=== PATIENT | male | born 1980 | race Caucasian/White ===

== ENCOUNTER 2020-04-16 12:47 | Emergency (ER) | payer OTHER ==
--- NOTE | 2020-04-16 13:11 | ED ---
General Adult HPI - General Chief complaint: Nausea/Vomiting/Diarrhea Stated complaint: nausea Time Seen by Provider: 04/16/20 12:58 Source: patient, RN notes reviewed Mode of arrival: ambulatory Limitations: no limitations - History of Present Illness Initial comments: 39-year-old male presents to the emergency department for coronavirus testing. Patient had slight nausea this morning at work and his work sent him home to be tested before returning to work. Patient states nausea has completely resolved. He states he feels his normal self. Patient denies fevers or chills. Denies cough. Denies vomiting or diarrhea. Denies any known exposures to coronavirus.Patient has no other complaints at this time including shortness of breath, chest pain, abdominal pain, vomiting, headache, or visual changes. - Related Data Allergies Allergy/AdvReac Type Severity Reaction Status Date / Time shellfish derived [Shellfish] Allergy Rash/Hives Verified 04/16/20 12:54 Review of Systems ROS Statement: Those systems with pertinent positive or pertinent negative responses have been documented in the HPI. ROS Other: All systems not noted in ROS Statement are negative. Past Medical History Past Medical History: No Reported History History of Any Multi-Drug Resistant Organisms: None Reported Past Surgical History: No Surgical Hx Reported Past Psychological History: No Psychological Hx Reported Smoking Status: Current every day smoker Past Alcohol Use History: Rare Past Drug Use History: None Reported General Exam Limitations: no limitations General appearance: alert, in no apparent distress Head exam: Present: atraumatic, normocephalic, normal inspection Eye exam: Present: normal appearance, PERRL, EOMI. Absent: scleral icterus, conjunctival injection, periorbital swelling ENT exam: Present: normal exam, normal oropharynx, mucous membranes moist, TM's normal bilaterally, normal external ear exam Neck exam: Present: normal inspection, full ROM. Absent: tenderness, meningismus, lymphadenopathy Respiratory exam: Present: normal lung sounds bilaterally. Absent: respiratory distress, wheezes, rales, rhonchi, stridor Cardiovascular Exam: Present: regular rate, normal rhythm, normal heart sounds. Absent: systolic murmur, diastolic murmur, rubs, gallop, clicks GI/Abdominal exam: Present: soft, normal bowel sounds. Absent: distended, tenderness, guarding, rebound, rigid Neurological exam: Present: alert Course Vital Signs 04/16/20 12:48 Temperature 98.3 F Pulse Rate 110 H Respiratory 20 Rate Blood Pressure 129/79 O2 Sat by Pulse 97 Oximetry Medical Decision Making - Medical Decision Making Vitals are stable. Patient initially tachycardic likely secondary to anxiety. Lungs are clear bilaterally. Abdomen is nontender. Patient is not having any nausea or vomiting. Patient is here only for chronic virus testing. Patient was tested and I did discuss the results would be available in about 24-48 hours. He will follow up on results. He will return here for any worsening symptoms. Disposition Clinical Impression: Encounter for laboratory test Disposition: HOME SELF-CARE Condition: Good Instructions (If sedation given, give patient instructions): Acute Nausea and Vomiting (ED) Additional Instructions: Please follow up on results in the next 1-2 days. If you have any worsening symptoms return to the emergency department for evaluation. Is patient prescribed a controlled substance at d/c from ED?: No Referrals: Renuka Gaviria MD [REFERRING] - 1-2 days Time of Disposition: 13:11
[2020-04-16 13:22] VITALS: BP 124/82; PULSE 89; RESP 18; TEMP 97.8
== END 2020-04-16 13:33 | disposition home or self-care (01) ==
LOC: EC 12:47
DX: Z03.818 Encounter for observation for suspected exposure to other biological agents ruled out (principal); Z20.828 Contact with and (suspected) exposure to other viral communicable diseases; F17.200 Nicotine dependence, unspecified, uncomplicated; Z91.013 Allergy to seafood
CPT/HCPCS: 99283; U0003

== ENCOUNTER 2020-10-06 16:33 | Inpatient (IN) | payer OTHER ==
--- NOTE | 2020-10-06 17:55 | ED ---
General Adult HPI - General Chief complaint: Psychiatric Symptoms Stated complaint: Mental Health Time Seen by Provider: 10/06/20 17:38 Source: patient, RN notes reviewed, old records reviewed Mode of arrival: ambulatory Limitations: no limitations - History of Present Illness Initial comments: 39-year-old male presenting for suicidal ideation, depression. Patient states he has multiple plans on how to kill himself. He denies suicide attempt. He reports increased depression and states there is nothing worth living 4. He denies physical complaints. He denies alcohol or illicit drugs. - Related Data Home Medications Medication Instructions Recorded Confirmed No Known Home Medications 10/06/20 10/06/20 Allergies Allergy/AdvReac Type Severity Reaction Status Date / Time shellfish derived [Shellfish] Allergy Rash/Hives Verified 10/06/20 19:22 Review of Systems ROS Statement: Those systems with pertinent positive or pertinent negative responses have been documented in the HPI. ROS Other: All systems not noted in ROS Statement are negative. Past Medical History Past Medical History: No Reported History History of Any Multi-Drug Resistant Organisms: None Reported Past Surgical History: No Surgical Hx Reported Past Psychological History: Depression Smoking Status: Current some day smoker Past Alcohol Use History: Rare Past Drug Use History: None Reported General Exam Limitations: no limitations General appearance: alert, in no apparent distress Head exam: Present: atraumatic, normocephalic Eye exam: Present: normal appearance, PERRL ENT exam: Present: normal exam Neck exam: Present: normal inspection. Absent: tenderness, meningismus Respiratory exam: Present: normal lung sounds bilaterally. Absent: respiratory distress, wheezes Cardiovascular Exam: Present: regular rate, normal rhythm GI/Abdominal exam: Present: soft. Absent: distended, tenderness, guarding Extremities exam: Present: normal inspection, normal capillary refill. Absent: pedal edema Back exam: Present: normal inspection Neurological exam: Present: alert, oriented X3, CN II-XII intact. Absent: motor sensory deficit Psychiatric exam: Present: depressed, flat affect, suicidal ideation Skin exam: Present: warm, dry, intact Course Vital Signs 10/06/20 16:50 Temperature 97.9 F Pulse Rate 81 Respiratory 18 Rate Blood Pressure 138/98 O2 Sat by Pulse 97 Oximetry - Reevaluation(s) Reevaluation #1: 10/06/20 17:55 Patient medically cleared for EPS evaluation. Medical Decision Making - Medical Decision Making Patient has been evaluated by EPS and will be admitted to this institution for further psychiatric evaluation and treatment. - Lab Data Lab Results 10/06/20 Range/Units 18:08 Urine Opiates Screen Not Detected (NotDetected) Ur Oxycodone Screen Not Detected (NotDetected) Urine Methadone Screen Not Detected (NotDetected) Ur Propoxyphene Screen Not Detected (NotDetected) Ur Barbiturates Screen Not Detected (NotDetected) U Tricyclic Antidepress Not Detected (NotDetected) Ur Phencyclidine Scrn Not Detected (NotDetected) Ur Amphetamines Screen Not Detected (NotDetected) U Methamphetamines Scrn Not Detected (NotDetected) U Benzodiazepines Scrn Not Detected (NotDetected) Urine Cocaine Screen Not Detected (NotDetected) U Marijuana (THC) Screen Not Detected (NotDetected) Disposition Clinical Impression: Depression, Suicidal ideation Disposition: ADMITTED IP TO THIS [facility] Condition: Stable Is patient prescribed a controlled substance at d/c from ED?: No Referrals: None,Stated [Primary Care Provider] - 1-2 days Decision to Admit Reason: Admit from EC Decision Date: 10/06/20 Decision Time: 19:42
[2020-10-06 18:38] LABS: Amphetamine Screen,Urine Not Detected (NotDetected); Barbiturate Screen,Urine Not Detected (NotDetected); Benzodiazepines Screen,Urine Not Detected (NotDetected); Cocaine Screen,Urine Not Detected (NotDetected); Methadone Screen, Urine Not Detected (NotDetected); Opiate Screen,Urine Not Detected (NotDetected); Oxycodone Screen, Urine Not Detected (NotDetected); Phencyclidine Screen,Urine Not Detected (NotDetected); Tricyclic Antidepressant,Urine Not Detected (NotDetected); Urn Cannabinoid Scrn Not Detected (NotDetected)
[2020-10-06] MEDS ORDERED: ACETAMINOPHEN TAB 325 MG TAB PO PRN (22:22)
[2020-10-06] MEDS ORDERED: LORazepam 1 MG TAB PO PRN (22:22)
[2020-10-06] MEDS ORDERED: MAG HYDROX/AL HYDROX/SIMETH 30 ML CUP PO PRN (22:22)
[2020-10-06] MEDS ORDERED: MAGNESIUM HYDROXIDE 2,400 MG/10 ML CUP PO PRN (22:22)
[2020-10-06] MEDS ORDERED: HALOPERIDOL LACTATE 5 MG/ML 1 ML VIAL IM PRN (22:24)
[2020-10-07] MEDS: NICOTINE 14MG/24HR PATCH TRANSDERM SCH ×2 (00:13→09:34)
[2020-10-07 08:41] LABS: Basophils # (A) 0.1 k/uL (0-0.2); Basophils % (A) 2 %; Eosinophils # (A) 0.4 k/uL (0-0.7); Eosinophils % (A) 6 %; HCT 51.2 % (39.0-53.0); HGB 17.2 gm/dL (13.0-17.5); Lymphocytes # (A) 2.9 k/uL (1.0-4.8); Lymphocytes % (A) 41 %; MCH 33.3 pg (25.0-35.0); MCHC 33.5 g/dL (31.0-37.0); MCV 99.4 fL (80.0-100.0); Mean Platelet Volume 6.5; Monocytes # (A) 0.6 k/uL (0-1.0); Monocytes % (A) 8 %; Neutrophils # (A) 2.8 k/uL (1.3-7.7); Neutrophils % (A) 41 %; Platelet Count 325 k/uL (150-450); RBC 5.15 m/uL (4.30-5.90); RDW 13.5 % (11.5-15.5); WBC 6.9 k/uL (3.8-10.6)
[2020-10-07 08:55] LABS: ALT 20 U/L (4-49); AST 42 U/L (17-59); African American GFR (CKD) >90 (>60 ml/min/1.73 sqM); Alkaline Phosphatase 71 U/L (38-126); Anion Gap 7 mmol/L; Blood Urea Nitrogen 18 mg/dL (9-20); Calcium 10.1 mg/dL (8.4-10.2); Carbon Dioxide 25 mmol/L (22-30); Chloride 104 mmol/L (98-107); Cholesterol 280 mg/dL (<200); Glucose 95 mg/dL (74-99); Non-African American GFR(CKD) >90 (>60 ml/min/1.73 sqM); Potassium 4.7 mmol/L (3.5-5.1); Sodium 136 mmol/L (137-145); Total Bilirubin 0.8 mg/dL (0.2-1.3); Total Protein 8.2 g/dL (6.3-8.2); Triglycerides 129 mg/dL (<150)
[2020-10-07 09:04] LABS: LDL Cholesterol,Calculated 127 mg/dL (0-99)
[2020-10-07 09:08] LABS: HDL Cholesterol 127 mg/dL (40-60)
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
[2020-10-07 13:05] LABS: Appearance,Urine Clear (Clear); Bilirubin,Urine Negative (Negative); Blood,Urine Negative (Negative); Color,Urine Yellow; Glucose,Urine (UA) Negative (Negative); Ketones,Urine Negative (Negative); Leukocyte Esterase,Urine Negative (Negative); Nitrite,Urine Negative (Negative); PH, Urine 5.5 (5.0-8.0); Protein,Urine Negative (Negative); Specific Gravity,Urine 1.025 (1.001-1.035); Urobilinogen,Urine <2.0 mg/dL (<2.0)
[2020-10-07 15:31] LABS: Hemoglobin A1C 5.2 % (4.0-6.0)
[2020-10-07] MEDS ORDERED: QUEtiapine 25 MG TAB PO SCH (21:00)
[2020-10-07] MEDS: LITHIUM CARBONATE 300 MG CAP PO SCH (21:30)
--- NOTE | 2020-10-08 00:25 | P.MDCNMH ---
History of Present Illness H&P Date: 10/07/20 Chief Complaint: Suicidal 39-year-old male with history of depression Patient comes in due to suicidal ideation and depression due to life stressors. Reports losing his work and girlfriend. He is feeling down and having suicidal ideation Patient otherwise denies any medical concerns denies any fevers chills chest pain trouble breathing or coughing denies any upper respiratory infection symptoms denies any muscle aches denies any nausea vomiting abdominal pain diarrhea Patient denies any smoking drugs or heavy alcohol use Labs reviewed Review of Systems Pertinent positives as noted in HPI. All other systems were reviewed and are neg ative Past Medical History Past Medical History: No Reported History History of Any Multi-Drug Resistant Organisms: None Reported Past Surgical History: No Surgical Hx Reported Past Psychological History: Depression Smoking Status: Current some day smoker Past Alcohol Use History: Rare Past Drug Use History: None Reported Medications and Allergies Home Medications Medication Instructions Recorded Confirmed Type No Known Home Medications 10/06/20 10/06/20 History Allergies Allergy/AdvReac Type Severity Reaction Status Date / Time shellfish derived [Shellfish] Allergy Rash/Hives Verified 10/06/20 19:22 Physical Exam Vitals: Vital Signs Temp Pulse Resp BP 10/07/20 17:15 98.0 F 10/07/20 06:36 97.8 F 62 16 119/68 Constitutional: No acute distress, conversant, pleasant Eyes: Anicteric sclerae, moist conjunctiva, Pupils equal round reactive to light ENMT: NC/AT Oropharynx clear, no erythema, or exudates Neck: Supple, FROM, no masses, or JVD No carotid bruits No thyromegaly Lungs: Clear to auscultation Clear to percussion Normal respiratory effort, no accessory muscle use Cardiovascular: Heart regular in rate and rhythm, No murmurs, gallops, or rubs No peripheral edema Abdominal: Soft Nontender, no guarding, rebound or rigidity Abdomen moving with respiration Normoactive bowel sounds No hepatomegaly, No splenomegaly No palpable mass No abdominal wall hernia noted Skin: Normal temperature, tone, texture, turgor No induration No subcutaneous nodules No rash, lesions No ulcers Extremities: No digital cyanosis No clubbing Pedal pulses intact and symmetrical Radial pulses intact and symmetrical No calf tenderness Psychiatric: Alert and oriented to person, place and time Appropriate affect fair judgement Neuro Muscles Strength 5/5 in all 4 extremities Sensation to light touch grossly present throughout Cranial nerves II-XII grossly intact No focal sensory deficits Lymphatics: no palpable cervical or supraclavicular , or inguinal lymph nodes Cranial Nerve Examination - Cranial Nerves Cranial Nerve II- Optic: Intact Cranial Nerve III- Oculomotor: Intact Cranial Nerve IV- Trochlear: Intact Cranial Nerve V- Trigeminal: Intact Cranial Nerve - Abducens: Intact Cranial Nerve VII- Facial: Intact Cranial Nerve VIII- Auditory: Intact Cranial Nerve IX- Glossopharyngeal: Intact Cranial Nerve X- Vagus: Intact Cranial Nerve XI- Accessory: Intact Cranial Nerve XII- Hypoglossal: Intact Results CBC & Chem 7: 10/07/20 08:01 10/07/20 08:01 Labs: Abnormal Lab Results - Last 24 Hours (Table) 10/07/20 Range/Units 08:01 Sodium 136 L (137-145) mmol/L Cholesterol 280 H (<200) mg/dL LDL Cholesterol, Calc 127 H (0-99) mg/dL HDL Cholesterol 127 H (40-60) mg/dL Assessment and Plan Assessment: Suicidal ideation Depression Management per psych labs Reviewed Thank you for allowing us to participate in the care of this patient. We will follow peripherally. Do not hesitate to contact us with questions. Someone can be reached from the [facility] hospitalist group at all hours of the day at [phone].
[2020-10-08] MEDS: NICOTINE 14MG/24HR PATCH TRANSDERM SCH (09:10)
[2020-10-08] MEDS: LITHIUM CARBONATE 300 MG CAP PO SCH ×2 (09:10→21:15)
--- NOTE | 2020-10-08 09:49 | P.PN ---
Progress Note - Text Progress Note Date: 10/08/20 Interval History: Patient was seen in group and was directable and agreeable to speak with the bid writer in the office. Patient is reporting that he is feeling better. He reported that he was able to sleep well last night. Prior to falling asleep though, the patient reports that he was having significant racing thoughts. He is not reporting any suicidal or homicidal ideation, intention, and/or plan today. He is not reporting any auditory or visual hallucinations. He denies any paranoia or delusions. He reports that mood swings have been under control at this time. He has been in adherent with his medications and reports no side effects. Mental Status Exam: General Appearance: Patient appears to be stated age is alert, directable, and cooperative. Behavior: Patient is calmly seated without any agitated behavior. Psychomotor activity is normal. Speech: Patient's speech is fluent and nonpressured. Mood/Affect: Mood is improving mildly, affect is congruent and euthymic. Suicidality/Homicidality: Patient denies having any suicidal or homicidal ideation intent or plan. Perceptions: Patient denies any visual hallucinations and denies any auditory hallucinations Though content/process: There is no evidence of any delusional thought content and thought process is linear and goal-directed. Memory and concentration: AOX3, grossly intact for the purposes of this session Judgment and insight: Improving mildly Assessment Bipolar disorder, type II, current episode depressed Nicotine dependence Rule out posttraumatic stress disorder Plan: -Patient continues to meet criteria for inpatient psychiatric admission for symptom stabilization and safety. Patient has signed adult voluntary form and medication consent and was placed in patient's chart. -Medications: Increase Seroquel to 150 mg by mouth daily at bedtime for mood stabilization/bipolar depression Increase lithium to 300 mg in the morning and 600 mg by mouth daily at bedtime for mood stabilization -Ativan and Haldol PRN for agitation/aggression -NRT - nicotine patch -SW on board for discharge planning. Encouraged the patient to participate in milieu.
[2020-10-08] MEDS ORDERED: QUEtiapine 50 MG TAB PO SCH (21:00)
[2020-10-09] MEDS: NICOTINE 14MG/24HR PATCH TRANSDERM SCH (09:11)
[2020-10-09] MEDS: LITHIUM CARBONATE 300 MG CAP PO SCH ×2 (09:11→22:05)
[2020-10-09] MEDS: NICOTINE 21MG/24HR PATCH TRANSDERM SCH (09:16)
--- NOTE | 2020-10-09 09:32 | P.PN ---
Progress Note - Text Progress Note Date: 10/09/20 Interval History: Patient was seen in his room and was directable and agreeable to speak with junior underwriter in the office. Patient reports that he is feeling irate. He reports that he was supposed to take a shower last night but was unable to. He also states that his nicotine patch dose was recently decreased. He is stating that he is very irritable and does not want to get out of his room today until he is allowed to shower. He is not reporting any suicidal or homicidal ideation, intention, and/or plan. He is reporting no auditory or visual hallucinations. He denies any paranoia or delusions. He reports no issues with sleep or appetite. He has been adherent with his medications and denies any side effects at this time. Mental Status Exam: General Appearance: Patient appears to be stated age is alert, directable, and cooperative. Poor dentition. Behavior: Patient is calmly seated without any agitated behavior. Psychomotor activity is normal. Speech: Patient's speech is fluent and nonpressured. Mood/Affect: Mood is irate, affect is congruent and irritable. Suicidality/Homicidality: Patient denies having any suicidal or homicidal ideation intent or plan. Perceptions: Patient denies any visual hallucinations and denies any auditory hallucinations Though content/process: There is no evidence of any delusional thought content and thought process is linear and goal-directed. Memory and concentration: AOX3, grossly intact for the purposes of this session Judgment and insight: Fair Assessment Bipolar disorder, type II, current episode depressed Nicotine dependence Rule out posttraumatic stress disorder Plan: -Patient continues to meet criteria for inpatient psychiatric admission for symptom stabilization and safety. Patient has signed adult voluntary form and medication consent and was placed in patient's chart. -Medications: Increase Seroquel to 300 mg by mouth daily at bedtime for mood stabilization/bipolar depression. Continue lithium 300 mg in the morning and 600 mg by mouth daily at bedtime for mood stabilization. -[place] level ordered for Monday. -Ativan and Haldol PRN for agitation/aggression -NRT - nicotine patch -SW on board for discharge planning. Encouraged the patient to participate in milieu.
[2020-10-09] MEDS: QUEtiapine 100 MG TAB PO SCH (22:05)
[2020-10-10] MEDS: NICOTINE 21MG/24HR PATCH TRANSDERM SCH (08:51)
[2020-10-10] MEDS: LITHIUM CARBONATE 300 MG CAP PO SCH ×2 (08:52→20:42)
--- NOTE | 2020-10-10 11:05 | P.PN ---
Progress Note - Text Progress Note Date: 10/10/20 Interval history: Patient was seen laying down in his bed this morning and was directable and a greeable to speak with sports book writer. Patient appeared to be somewhat irritable and wanted to speak in his room today. He states that he is feeling upset this morning because during the goal setting group the [employer] was putting people's goals on the board and he believes that "he was violating my rights and privacy". He claims that he does not care for the [employer] tech at all and was angry. He states that his mood has been gradually improving however. He states that last night he is finding it difficult to sleep however wanted to remain on the same dose of his Seroquel. He states that he has been trying to go to groups as best as he can and eating his meals. At this time patient denies any suicidal or homicidal ideations intent or plan. Denies any Auditory or visual hallucinations. Patient denies any side effects from the medications and has been compliant with meds. Mental status exam: General Appearance: Patient appears to be stated age is alert, directable, and i rritable at times. Improving hygiene and grooming. Behavior: No agitated behavior. Patient is calm and directable irritable at times Speech: Patient's speech is fluent and nonpressured. Mood/Affect: Mood is improving mildly, affect is congruent and constricted. Suicidality/Homicidality: Patient denies having any suicidal or homicidal ideation intent or plan. Perceptions: Patient denies any auditory or visual hallucinations. Though content/process: There is no evidence of any delusional thought content and thought process is linear and goal-directed. Memory and concentration: AOX3, grossly intact for the purposes of this session Judgment and insight: improving mildly Assessment/Plan: Continue with current diagnosis. Patient continues to meet criteria for inpatient psychiatric admission for symptom stabilization and safety.Patient will be maintained on current psychotropic medication regimen. At patient's request, added Senokot for constipation. Monitor for medication compliance and for any psychotropic medication side effects. Will continue to monitor ongoing response to treatment. Encouraged participation in milieu.
[2020-10-10] MEDS: SENNOSIDES-DOCUSATE SODIUM 1 EACH TAB PO SCH ×2 (11:12→20:42)
[2020-10-10] MEDS: QUEtiapine 100 MG TAB PO SCH (20:42)
[2020-10-11] MEDS: NICOTINE 21MG/24HR PATCH TRANSDERM SCH (08:57)
[2020-10-11] MEDS: SENNOSIDES-DOCUSATE SODIUM 1 EACH TAB PO SCH ×2 (08:58→20:40)
[2020-10-11] MEDS: LITHIUM CARBONATE 300 MG CAP PO SCH ×2 (08:58→20:40)
[2020-10-11] MEDS ORDERED: LITHIUM CARBONATE 300 MG CAP PO STA (13:08)
--- NOTE | 2020-10-11 13:09 | P.PN ---
Progress Note - Text Progress Note Date: 10/11/20 Interval history: Patient was seen laying down in his bed this morning and was directable and a greeable to speak with curriculum writer. Patient continues to demonstrate irritability and states that he feels that when he came into the hospital he had blood work drawn from him and states that "I feel like the left part of the needle still in my fine". He went on to complain that she feels a bump over his vein and also claims that he has pain there as well. He claims that he has been feeling "grumpy" during the day and claims that he has not been going to groups as he "doesn't care". He denies any current depression at this time or any anxiety. He states that he was able to sleep better last night on the medications. At this time patient denies any suicidal or homicidal ideations intent or plan. Denies any Auditory or visual hallucinations. Patient denies any side effects from the medications and has been compliant with meds. Mental status exam: General Appearance: Patient appears to be stated age is alert, directable, and irritable at times. Improving hygiene and grooming. Behavior: No agitated behavior. Patient is calm and directable irritable at times Speech: Patient's speech is fluent and nonpressured. Mood/Affect: Mood is improving mildly, affect is congruent and irritable Suicidality/Homicidality: Patient denies having any suicidal or homicidal ideation intent or plan. Perceptions: Patient denies any auditory or visual hallucinations. Though content/process: There is no evidence of any delusional thought content and thought process is linear and goal-directed. Memory and concentration: AOX3, grossly intact for the purposes of this session Judgment and insight: poor, improving mildly Assessment/Plan: Continue with current diagnosis. Patient continues to meet criteria for inpatient psychiatric admission for symptom stabilization and safety.Patient will be maintained on current psychotropic medication regimen, with the exception of increasing [place] to 600mg bid for mood stabilizaiton. continue with sennakot for constipation. Monitor for medication compliance and for any psychotropic medication side effects. Will continue to monitor ongoing response to treatment. Encouraged participation in milieu.
[2020-10-11] MEDS: QUEtiapine 100 MG TAB PO SCH (20:41)
[2020-10-12 06:51] VITALS: BP 128/69; PULSE 72; RESP 16; TEMP 98.6
[2020-10-12] MEDS: SENNOSIDES-DOCUSATE SODIUM 1 EACH TAB PO SCH (08:38)
[2020-10-12] MEDS: NICOTINE 21MG/24HR PATCH TRANSDERM SCH (08:38)
[2020-10-12] MEDS ORDERED: LITHIUM CARBONATE 300 MG CAP PO SCH (09:00)
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
== END 2020-10-12 14:58 | disposition home or self-care (01) | DRG 885 ==
LOC: EC 16:33 → 3MHU 21:14
PROVIDERS: ADMIT Psychiatry & Neurology Psychiatry; ATTEND Psychiatry & Neurology Psychiatry
DX: F31.30 Bipolar disorder, current episode depressed, mild or moderate severity, unspecified (principal); R45.851 Suicidal ideations; F17.210 Nicotine dependence, cigarettes, uncomplicated; K59.00 Constipation, unspecified; F43.10 Post-traumatic stress disorder, unspecified; Z56.0 Unemployment, unspecified; Z59.0 Homelessness; Z62.810 Personal history of physical and sexual abuse in childhood; Z91.013 Allergy to seafood
CPT/HCPCS: 80053; 80061; 80306; 81003; 82075; 83036; 84443; 85025; 87635; 99285

== ENCOUNTER 2020-12-13 19:39 | Inpatient (IN) | payer MEDICAID, OTHER ==
--- NOTE | 2020-12-13 20:14 | ED ---
Psych HPI - General Chief Complaint: Psychiatric Symptoms Stated Complaint: Mental Health Time Seen by Provider: 12/13/20 19:45 Source: patient Mode of arrival: ambulatory - History of Present Illness Initial Comments: This is a 40-year-old male with a history of depression who presents emergency department for depression and suicidal ideation. The patient states that he started having suicidal ideation 2 weeks ago. He states that the stress from his has caused him to feel this way. He states that he has thought of multiple ways to kill himself. He states that he used to be on lithium however stopped taking this about one month ago. He states he takes no other medications. Denies any drinking or drug use. No auditory or visual hallucinations. Denies any other physical complaints. - Related Data Previous Rx's Medication Instructions Recorded [place] Carbonate 600 mg PO BID 30 Days cap 10/12/20 Nicotine 21Mg/24Hr Patch [Habitrol] 1 patch TRANSDERM DAILY 30 Days 10/12/20 patch QUEtiapine [SEROquel] 300 mg PO HS 30 Days tab 10/12/20 Allergies Allergy/AdvReac Type Severity Reaction Status Date / Time shellfish derived [Shellfish] Allergy Rash/Hives Verified 12/13/20 19:44 Review of Systems ROS Statement: Those systems with pertinent positive or pertinent negative responses have been documented in the HPI. ROS Other: All systems not noted in ROS Statement are negative. Past Medical History Past Medical History: No Reported History History of Any Multi-Drug Resistant Organisms: None Reported Past Surgical History: No Surgical Hx Reported Past Psychological History: Depression Smoking Status: Former smoker Past Alcohol Use History: Rare Past Drug Use History: None Reported General Exam - General Exam Comments Initial Comments: Constitutional: [Awake alert] [Appears comfortable] Head: [Normocephalic atraumatic] Eyes: [no conjunctival injection] [No scleral icterus] [EOMI] Neck: [No JVD] [Supple] Heart: [Regular rate rhythm] [normal S1-S2] [no murmurs] Lungs: [Clear to auscultation bilaterally] [No wheezing] [No rales] Abdomen: [Soft] [nondistended] [nontender] Extremities: [Non edematous] [DP pulses intact] [Radial pulses intact] Neuro: [A&Ox3] [No focal neurologic deficits] Psych: Depressed and suicidal with a plan Limitations: no limitations Course Vital Signs 12/13/20 19:39 Temperature 97.1 F L Pulse Rate 119 H Respiratory 20 Rate Blood Pressure 147/82 O2 Sat by Pulse 99 Oximetry Medical Decision Making - Medical Decision Making Is a 40-year-old male who presents for depression and suicidal ideation. The patient is well-known to the psychiatry unit. The patient had no medical complaints and appeared well on examination. The patient was medically clear for psych admission and the patient was admitted for further treatment and care. Patient's lithium level will be checked upon arrival to the psychiatric floor. Disposition Clinical Impression: Depression, Suicidal ideation Disposition: ADMITTED IP TO THIS HOSP Condition: Stable
[2020-12-13] MEDS ORDERED: MAGNESIUM HYDROXIDE 2,400 MG/10 ML CUP PO PRN (20:31)
[2020-12-13] MEDS ORDERED: MAG HYDROX/AL HYDROX/SIMETH 30 ML CUP PO PRN (20:31)
[2020-12-13] MEDS ORDERED: ACETAMINOPHEN TAB 325 MG TAB PO PRN (20:31)
[2020-12-13] MEDS ORDERED: LORazepam 2 MG/ML INJ IM PRN (20:36)
[2020-12-13] MEDS ORDERED: HALOPERIDOL LACTATE 5 MG/ML 1 ML VIAL IM PRN (20:36)
[2020-12-13] MEDS ORDERED: LORazepam 1 MG TAB PO PRN (20:38)
[2020-12-13 21:02] LABS: Amphetamine Screen,Urine Not Detected (NotDetected); Barbiturate Screen,Urine Not Detected (NotDetected); Benzodiazepines Screen,Urine Not Detected (NotDetected); Cocaine Screen,Urine Not Detected (NotDetected); Methadone Screen, Urine Not Detected (NotDetected); Opiate Screen,Urine Not Detected (NotDetected); Oxycodone Screen, Urine Not Detected (NotDetected); Phencyclidine Screen,Urine Not Detected (NotDetected); Tricyclic Antidepressant,Urine Not Detected (NotDetected); Urn Cannabinoid Scrn Not Detected (NotDetected)
[2020-12-13] MEDS: QUEtiapine 100 MG TAB PO SCH (21:40)
[2020-12-13] MEDS: LITHIUM CARBONATE 300 MG CAP PO SCH (21:41)
--- NOTE | 2020-12-14 02:01 | P.MDCNMH ---
History of Present Illness H&P Date: 12/13/20 Chief Complaint: medical evaluation 40 year old male with bipolar type 2 he comes in today for suicidal ideation , he has stopped taking his lithium about a month ago , due to concerns regarding his renal health . he mentions life stressors related to family , giving him the suicidal thoughts, which has been ogoing for about 2 weeks . he other chaves denies nay smoking, drug use, or alcohol . he denies any medical concerns, denies any fever, chills, chest pain , trouble breathing, coughing, GI symptoms, or urinary changes,. Review of Systems Pertinent positives as noted in HPI. All other systems were reviewed and are negative Past Medical History Past Medical History: No Reported History History of Any Multi-Drug Resistant Organisms: None Reported Past Surgical History: No Surgical Hx Reported Past Psychological History: Depression Smoking Status: Former smoker Past Alcohol Use History: Rare Past Drug Use History: None Reported - Past Family History family Family Medical History: No Reported History Medications and Allergies Home Medications Medication Instructions Recorded Confirmed Type [place] Carbonate 600 mg PO BID 30 Days cap 10/12/20 12/13/20 Rx Nicotine 21Mg/24Hr Patch [Habitrol] 1 patch TRANSDERM DAILY 30 Days 10/12/20 12/13/20 Rx patch QUEtiapine [SEROquel] 300 mg PO HS 30 Days tab 10/12/20 Rx Allergies Allergy/AdvReac Type Severity Reaction Status Date / Time shellfish derived [Shellfish] Allergy Rash/Hives Verified 12/13/20 21:59 Physical Exam Vitals: Vital Signs Temp Pulse Pulse Resp BP BP Pulse Ox 12/13/20 21:00 98.5 F 102 H 16 129/87 95 12/13/20 19:39 97.1 F L 119 H 20 147/82 99 Intake and Output 12/13/20 12/13/20 12/14/20 14:59 22:59 06:59 Other: Weight 64 kg Constitutional: No acute distress, conversant, pleasant Eyes: Anicteric sclerae, moist conjunctiva, Pupils equal round reactive to light ENMT: NC/AT Oropharynx clear, no erythema, or exudates Neck: Supple, FROM, no masses, or JVD No carotid bruits No thyromegaly Lungs: Clear to auscultation Clear to percussion Normal respiratory effort, no accessory muscle use Cardiovascular: Heart regular in rate and rhythm, No murmurs, gallops, or rubs No peripheral edema Abdominal: Soft Nontender, no guarding, rebound or rigidity Abdomen moving with respiration Normoactive bowel sounds No hepatomegaly, No splenomegaly No palpable mass No abdominal wall hernia noted Skin: Normal temperature, tone, texture, turgor No induration No subcutaneous nodules No rash, lesions No ulcers Extremities: No digital cyanosis No clubbing Pedal pulses intact and symmetrical Radial pulses intact and symmetrical No calf tenderness Psychiatric: Alert and oriented to person, place and time depressed affect fair judgement Neuro Muscles Strength 5/5 in all 4 extremities Sensation to light touch grossly present throughout Cranial nerves II-XII grossly intact No focal sensory deficits Lymphatics: no palpable cervical or supraclavicular , or inguinal lymph nodes Cranial Nerve Examination - Cranial Nerves Cranial Nerve II- Optic: Intact Cranial Nerve III- Oculomotor: Intact Cranial Nerve IV- Trochlear: Intact Cranial Nerve V- Trigeminal: Intact Cranial Nerve - Abducens: Intact Cranial Nerve VII- Facial: Intact Cranial Nerve VIII- Auditory: Intact Cranial Nerve IX- Glossopharyngeal: Intact Cranial Nerve X- Vagus: Intact Cranial Nerve XI- Accessory: Intact Cranial Nerve XII- Hypoglossal: Intact Assessment and Plan Assessment: bipolar type 2 suicide ideation management per psych follow up labs Thank you for allowing us to participate in the care of this patient. We will follow peripherally. Do not hesitate to contact us with questions. Someone can be reached from the [facility] hospitalist group at all hours of the day at [phone].
[2020-12-14 07:57] LABS: Basophils # (A) 0.1 k/uL (0-0.2); Basophils % (A) 1 %; Eosinophils # (A) 0.5 k/uL (0-0.7); Eosinophils % (A) 7 %; HCT 46.5 % (39.0-53.0); HGB 14.8 gm/dL (13.0-17.5); Lymphocytes # (A) 2.8 k/uL (1.0-4.8); Lymphocytes % (A) 44 %; MCH 31.3 pg (25.0-35.0); MCHC 31.9 g/dL (31.0-37.0); MCV 98.3 fL (80.0-100.0); Mean Platelet Volume 6.4; Monocytes # (A) 0.5 k/uL (0-1.0); Monocytes % (A) 8 %; Neutrophils # (A) 2.4 k/uL (1.3-7.7); Neutrophils % (A) 37 %; Platelet Count 294 k/uL (150-450); RBC 4.73 m/uL (4.30-5.90); RDW 13.9 % (11.5-15.5); WBC 6.4 k/uL (3.8-10.6)
[2020-12-14 08:04] LABS: ALT 11 U/L (4-49); AST 28 U/L (17-59); African American GFR (CKD) >90 (>60 ml/min/1.73 sqM); Albumin 4.3 g/dL (3.5-5.0); Alkaline Phosphatase 54 U/L (38-126); Anion Gap 3 mmol/L; Blood Urea Nitrogen 16 mg/dL (9-20); Calcium 9.7 mg/dL (8.4-10.2); Carbon Dioxide 28 mmol/L (22-30); Chloride 106 mmol/L (98-107); Cholesterol 215 mg/dL (<200); Glucose 92 mg/dL (74-99); HDL Cholesterol 86 mg/dL (40-60); LDL Cholesterol,Calculated 121 mg/dL (0-99); Non-African American GFR(CKD) >90 (>60 ml/min/1.73 sqM); Potassium 4.6 mmol/L (3.5-5.1); Sodium 137 mmol/L (137-145); Total Bilirubin 0.5 mg/dL (0.2-1.3); Total Protein 6.9 g/dL (6.3-8.2); Triglycerides 40 mg/dL (<150)
[2020-12-14] MEDS: LITHIUM CARBONATE 300 MG CAP PO SCH (08:34)
[2020-12-14] MEDS ORDERED: NICOTINE 14MG/24HR PATCH TRANSDERM SCH (09:00)
--- NOTE | 2020-12-14 12:26 | P.HP ---
Psychiatric H&P - . H&P Date: 12/14/20 History & Physical: Allergies Allergy/AdvReac Type Severity Reaction Status Date / Time shellfish derived Shellfish Allergy Rash/Hives Verified 12/13/20 21:59 Vital Signs Temp 98.1 F 12/14/20 06:20 Pulse 65 12/14/20 06:20 Resp 18 12/14/20 06:20 BP 119/75 12/14/20 06:20 Pulse Ox 95 12/13/20 21:00 Intake & Output 12/13/20 12/14/20 12/14/20 18:59 06:59 18:59 Weight 64 kg Laboratory Last Values WBC 6.4 k/uL (3.8-10.6) 12/14/20 07:31 RBC 4.73 m/uL (4.30-5.90) 12/14/20 07:31 Hgb 14.8 gm/dL (13.0-17.5) 12/14/20 07:31 Hct 46.5 % (39.0-53.0) 12/14/20 07:31 MCV 98.3 fL (80.0-100.0) 12/14/20 07:31 MCH 31.3 pg (25.0-35.0) 12/14/20 07:31 MCHC 31.9 g/dL (31.0-37.0) 12/14/20 07:31 RDW 13.9 % (11.5-15.5) 12/14/20 07:31 Plt Count 294 k/uL (150-450) 12/14/20 07:31 MPV 6.4 12/14/20 07:31 Neutrophils % 37 % 12/14/20 07:31 Lymphocytes % 44 % 12/14/20 07:31 Monocytes % 8 % 12/14/20 07:31 Eosinophils % 7 % 12/14/20 07:31 Basophils % 1 % 12/14/20 07:31 Neutrophils # 2.4 k/uL (1.3-7.7) 12/14/20 07:31 Lymphocytes # 2.8 k/uL (1.0-4.8) 12/14/20 07:31 Monocytes # 0.5 k/uL (0-1.0) 12/14/20 07:31 Eosinophils # 0.5 k/uL (0-0.7) 12/14/20 07:31 Basophils # 0.1 k/uL (0-0.2) 12/14/20 07:31 Sodium 137 mmol/L (137-145) 12/14/20 07:31 Potassium 4.6 mmol/L (3.5-5.1) 12/14/20 07:31 Chloride 106 mmol/L (98-107) 12/14/20 07:31 Carbon Dioxide 28 mmol/L (22-30) 12/14/20 07:31 Anion Gap 3 mmol/L 12/14/20 07:31 BUN 16 mg/dL (9-20) 12/14/20 07:31 Creatinine 0.88 mg/dL (0.66-1.25) 12/14/20 07:31 Est GFR (CKD-EPI)AfAm >90 (>60 ml/min/1.73 sqM) 12/14/20 07:31 Est GFR (CKD-EPI)NonAf >90 (>60 ml/min/1.73 sqM) 12/14/20 07:31 Glucose 92 mg/dL (74-99) 12/14/20 07:31 Calcium 9.7 mg/dL (8.4-10.2) 12/14/20 07:31 Total Bilirubin 0.5 mg/dL (0.2-1.3) 12/14/20 07:31 AST 28 U/L (17-59) 12/14/20 07:31 ALT 11 U/L (4-49) 12/14/20 07:31 Alkaline Phosphatase 54 U/L (38-126) 12/14/20 07:31 Total Protein 6.9 g/dL (6.3-8.2) 12/14/20 07:31 Albumin 4.3 g/dL (3.5-5.0) 12/14/20 07:31 Triglycerides 40 mg/dL (<150) 12/14/20 07:31 Cholesterol 215 mg/dL (<200) H 12/14/20 07:31 LDL Cholesterol, Calc 121 mg/dL (0-99) H 12/14/20 07:31 HDL Cholesterol 86 mg/dL (40-60) H 12/14/20 07:31 TSH 0.968 mIU/L (0.465-4.680) 12/14/20 07:31 Urine Opiates Screen Not Detected (NotDetected) 12/13/20 20:40 Ur Oxycodone Screen Not Detected (NotDetected) 12/13/20 20:40 Urine Methadone Screen Not Detected (NotDetected) 12/13/20 20:40 Ur Propoxyphene Screen Not Detected (NotDetected) 12/13/20 20:40 Ur Barbiturates Screen Not Detected (NotDetected) 12/13/20 20:40 U Tricyclic Antidepress Not Detected (NotDetected) 12/13/20 20:40 Ur Phencyclidine Scrn Not Detected (NotDetected) 12/13/20 20:40 Ur Amphetamines Screen Not Detected (NotDetected) 12/13/20 20:40 U Methamphetamines Scrn Not Detected (NotDetected) 12/13/20 20:40 U Benzodiazepines Scrn Not Detected (NotDetected) 12/13/20 20:40 [place] <0.2 mmol/L 12/13/20 20:49 Urine Cocaine Screen Not Detected (NotDetected) 12/13/20 20:40 U Marijuana (THC) Screen Not Detected (NotDetected) 12/13/20 20:40 Coronavirus (PCR) Not Detected (Not Detectd) 12/13/20 20:01 12/14/20 12:16 IDENTIFYING DATA: Patient is a single, unemployed, homeless, 40-year-old male who presented to the emergency department with suicidal ideation. HPI: This patient is familiar to our treatment team and was most recently admitted onto our psychiatric unit from 10/07/20 to 10/12/2020 for suicidal ideation with the same plan endorsed as this time. Patient presented to the hospital on 12/13/2020 with a chief complaint of suicidal ideation has been ongoing for the past 2 weeks. The patient reports multiple exacerbating factors including not being on his medications for the past month due to insurance issues, his homelessness, and a recent argument with his brother with whom he has been staying with. The patient is currently endorsing significant depression including symptoms of hopelessness, helplessness, low energy, and suicidal ideation with a plan to inject air into his blood. He is currently not reporting any side ideation, intention, and/or plan. In regards to bipolar symptoms, the patient denies any periods of excessive energy but has been endorsing racing thoughts, impulsivity, and mood swings. The patient reports that when he was on his regimen of lithium and Seroquel that he was doing really well. At this time, the patient wants to continue his Seroquel but wants to change from lithium to Depakote due to a family history of kidney failure. The patient is concerned for side effects of the lithium despite his lab work showing that his kidneys are functioning fine. He is open to starting Depakote. PAST PSYCHIATRIC HISTORY: Patient states that he is treated for depression when he was a child. He is only able to recall Depleorate has a past psychiatric medication along with his currently prescribed home medications of lithium and Seroquel. He was most recently admitted onto the psychiatric unit this past October for 5 days. Patient denies any psychiatric outpatient follow-up. Patient denies any history of suicide attempts in the past. PMH: No reported medical history. ALLERGIES: shellfish CHEMICAL DEPENDENCY HISTORY: Patient reports quitting tobacco since his last admission. He reports rare use of alcohol stating that he only has had one beer since he was last discharged. He denies any marijuana or illicit drug use. FAMILY PSYCHIATRIC/SUBSTANCE USE HISTORY: The patient reports that he had a sister who completed suicide just over a year ago. He denies any knowledge of any other mental illness or substance abuse problems in the family. [place]IAL HISTORY[place]. He is one of 9 children. 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 He has a ninth grade education. He denies any legal issues. His father is . MENTAL STATUS EXAM: General Appearance: Patient appears to be stated age is alert, directable, and attempts to cooperate. Patient appears to be slightly disheveled. Behavior: Patient is seated without any agitated sychomotor activity appears normal. Speech: Patient's speech is fluent and nonpressured. Mood/Affect: Patient reports their mood is depressed, affect is congruent and constricted. Suicidality/Homicidality: Patient denies having any homicidal ideation intent or plan. Denies any suicidal ideations intent or plan Perceptions: Patient denies any visual hallucinations and denies any auditory hallucinations Though content/process: There is no evidence of any delusional thought content and thought process is linear and goal-directed. Memory and concentration: AOX3, grossly intact for the purposes of this session. Can spell "WORLD" backwards Judgment and insight: Fair STRENGTHS/WEAKNESSES: Strength is that patient is resilient and future-oriented. Weakness is that patient has poor judgment and is impulsive INTELLECT: average IMPRESSIONS: Bipolar disorder, type II, current episode depressed Nicotine dependence, in remission PLAN: -Patient is admitted under voluntary status to [facility] for stabilization of psychiatric symptoms and safety. Patient signed adult voluntary form and medication consent and is placed in patient's chart. -Medications : Discontinue [place] as per patient preference. Start Depakote ER 500 mg by mouth at bedtime for mood stabilization Continue Seroquel 300 mg by mouth at bedtime for bipolar depression. -Ativan and haldol PRN for agitation/aggression -Patient was informed of the risks, benefits and side effects of the medication and patient verbally consented to taking the medications. Patient signed med consent form and was placed in chart. -Internal Medicine consult to perform medical evaluation and physical. -SW on board for discharge planning. Encourage patient to participate in groups to work on coping skills. 12/14/20 12:26
[2020-12-14 15:29] LABS: Hemoglobin A1C 5.1 % (4.0-6.0)
[2020-12-14] MEDS ORDERED: DIVALPROEX ER 500 MG TAB.ER.24H PO SCH (21:00)
[2020-12-14] MEDS: QUEtiapine 100 MG TAB PO SCH (21:58)
[2020-12-15 00:23] LABS: Urine Alcohol Negative (Negative); Urine Barbiturate Negative (Negative); Urine Cocaine Negative (Negative); Urine Methadone Negative (Negative); Urine Opiates Negative (Negative); Urine Phencyclidine Negative (Negative)
--- NOTE | 2020-12-15 10:12 | P.PN ---
Progress Note - Text Progress Note Date: 12/15/20 Interval History: Patient was seen resting in bed and was directable and agreeable to speak with publications writer in the office. Patient reports that he is feeling laying mildly better but continues endorse significant symptoms of depression including hopelessness, helplessness, low energy, and difficulty concentrating. He states that he is not as suicidal as before but continues to have mild thoughts of suicide. He denies any intention or plan at this time. The patient is not reporting any auditory or visual hallucinations. He is denying any paranoia or delusions. He refused his Seroquel medication last night stating that he did not need the medication as he was already sleeping. He also states that he has been off that medication for a month and feels like he does not require it. The patient would like to try monotherapy with Depakote at this time. Mental Status Exam: General Appearance: Patient appears to be stated age is alert, directable, and cooperative. Patient continues to present as disheveled. Behavior: Patient is calmly seated without any agitated behavior. Psychomotor activity appears slowed today. Speech: Patient's speech is fluent and nonpressured. Spontaneous. Mood/Affect: Mood is improving mildly, affect is congruent and constricted. Suicidality/Homicidality: Patient denies any homicidal ideation, intention, and/or plan. He endorses mild suicidal ideation. Perceptions: Patient denies any visual hallucinations and denies any auditory hallucinations Though content/process: There is no evidence of any delusional thought content and thought process is linear and goal-directed. Memory and concentration: AOX3, grossly intact for the purposes of this session Judgment and insight: Improving mildly Assessment Bipolar disorder, type II, current episode depressed Nicotine dependence, in remission Plan: -Patient continues to meet criteria for inpatient psychiatric admission for symptom stabilization and safety. Patient has signed adult voluntary form and medication consent and was placed in patient's chart. -Medications: We'll hold Seroquel as per patient preference Increase Depakote ER to 750 mg by mouth at bedtime for mood stabilization -When necessary Ativan and Haldol for agitation/aggression. -SW on board for discharge planning. Encouraged the patient to participate in milieu.
[2020-12-15] MEDS: DIVALPROEX ER 250 MG TAB.ER.24H PO SCH (20:36)
[2020-12-16 07:13] VITALS: RESP 16
--- NOTE | 2020-12-16 10:22 | P.PN ---
Progress Note - Text Progress Note Date: 12/16/20 Interval History: Patient was seen resting in bed and was directable and agreeable to speak with public relations writer in the office. Patient reports that he is feeling much better today. He states that he will try to attend groups today. He is not reporting any suicidal or homicidal ideation, intention, and/or plan. He is not reporting any auditory or visual hallucinations. He is denying any paranoia or delusions. He is currently not reporting any significant side effects of his medications. He states that he was able to sleep well and has no issues with appetite. Patient was informed that he is likely to be discharged tomorrow. He does express some disappointment and is uncertain of where he will go. He states that he was refused at the residential the last time he was discharged from this facility. Mental Status Exam: General Appearance: Patient appears to be stated age is alert, directable, and cooperative. Hygiene and grooming appears to be improved. Behavior: Patient is calmly seated without any agitated behavior. Psychomotor activity appears normal. Eye contact is appropriate. Speech: Patient's speech is fluent and nonpressured. Spontaneous. Mood/Affect: Mood is improving mildly, affect appears bright and euthymic. Suicidality/Homicidality: Patient is denying any suicidal or homicidal ideation, intention, and/or plan. Perceptions: Patient denies any visual hallucinations and denies any auditory hallucinations Though content/process: There is no evidence of any delusional thought content and thought process is linear and goal-directed. Memory and concentration: AOX3, grossly intact for the purposes of this session Judgment and insight: Improving mildly Assessment Bipolar disorder, type II, current episode depressed Nicotine dependence, in remission Plan: -Patient continues to meet criteria for inpatient psychiatric admission for symptom stabilization and safety. Patient has signed adult voluntary form and medication consent and was placed in patient's chart. -Medications: Continue Depakote ER to 750 mg by mouth at bedtime for mood stabilization. We will obtain a Depakote level today. -When necessary Ativan and Haldol for agitation/aggression. -SW on board for discharge planning. Encouraged the patient to participate in milieu.
[2020-12-16] MEDS: DIVALPROEX ER 250 MG TAB.ER.24H PO SCH (21:01)
[2020-12-17 06:53] VITALS: BP 132/78; PULSE 62
--- NOTE | 2020-12-17 11:13 | P.DS ---
Providers Date of admission: 12/13/20 20:29 Expected date of discharge: 12/17/20 Attending physician: Ranjeet Rodrigez MD Consults: 12/13/20 20:31 Consult Physician Routine Consulting Provider: Danelle Campbell Consult Reason/Comments: medical management Do you want consulting provider notified?: Yes Primary care physician: Stated None - Discharge Diagnosis(es) (1) Bipolar II disorder Current Visit: Yes Status: Acute Priority: High Hospital Course: Admission HPI: Patient is a single, unemployed, homeless, 40-year-old male who presented to the emergency department with suicidal ideation. This patient is familiar to our treatment team and was most recently admitted onto our psychiatric unit from 10/07/20 to 10/12/2020 for suicidal ideation with the same plan endorsed as this time. Patient presented to the hospital on 12/13/2020 with a chief complaint of suicidal ideation has been ongoing for the past 2 weeks. The patient reports multiple exacerbating factors including not being on his medications for the past month due to insurance issues, his homelessness, and a recent argument with his brother with whom he has been staying with. The patient is currently endorsing significant depression including symptoms of hopelessness, helplessness, low energy, and suicidal ideation with a plan to inject air into his blood. He is currently not reporting any side ideation, intention, and/or plan. In regards to bipolar symptoms, the patient denies any periods of excessive energy but has been endorsing racing thoughts, impulsivity, and mood swings. The patient reports that when he was on his regimen of lithium and Seroquel that he was doing really well. At this time, the patient wants to continue his Seroquel but wants to change from lithium to Depakote due to a family history of kidney failure. The patient is concerned for side effects of the lithium despite his lab work showing that his kidneys are functioning fine. He is open to starting Depakote. Hospital course: Upon admission to the unit patient was initially thing as disheveled, depressed, endorsing suicidal ideation. The patient was recently discharged from [facility] but was not adherent with his prescribed medications. Patient was however directable and agreeable to commence treatment. Patient was started on Seroquel and his lithium was changed to Depakote as patient expressed concern for kidney injury as he reports a family history of kidney problems. The patient ended up refusing the Seroquel as well stating that it made him feel overly sedated and that since he has been off medication for 1 month he does not feel like he needs the medication. His Depakote was gradually titrated to a final dose of 750 mg by mouth daily at bedtime. Depakote level was obtained on 12/16/2020 and was determined to be 36.3. Despite this, the patient did endorse significant improvement in mood. Over the course of the hospitalization, the patient gradually improved in mood, participation in milieu activities including groups, hygiene, and affect. On the day of discharge, the patient is not reporting any suicidal or homicidal ideation, intention, and/or plan. He is not reporting any auditory or visual hallucinations. He is denying any paranoia or delusions. He's been adherent with his medication is not reporting any significant side effects at this time. The patient remains future oriented and motivated despite his homelessness. The patient does not have a significant history of substance abuse however was counseled on avoiding substances such as alcohol and marijuana. He was counseled on the medications and need for regular compliance and encouraged to follow-up with his outpatient appointments for mental health and for primary care. He denied any access to firearms or weapons. Mental status exam: General Appearance: Patient appears to be stated age is alert, pleasant, and cooperative. Patient is in no acute distress and has fair hygiene and grooming Behavior: Patient is calmly seated without any agitated behavior. Psychomotor activity appears normal. Eye contact is appropriate. Speech: Patient's speech is fluent and nonpressured. Mood/Affect: Patient reports their mood is "much better", affect is congruent and euthymic to bright. Suicidality/Homicidality: Patient denies having any suicidal or homicidal ideation intent or plan. Perceptions: Patient denies any auditory or visual hallucinations. Though content/process: There is no evidence of any delusional thought content and thought process is linear and goal-directed. Patient is future oriented. Memory and concentration: AOX3, grossly intact for the purposes of this session. Can spell "WORLD" backwards correctly. Judgment and insight: Improved with guarded prognosis Impression: Bipolar disorder, type II, current episode depressed Nicotine dependence, in remission Plan: -Continue with discharge today as patient has improved and stabilized psychiatrically and is not currently an imminent threat to himself and/or others. Patient will remain at chronically elevated risk for harm to self and/or others due to his lack of frustration tolerance and homelessness. -Continue medications: Depakote 750 mg by mouth at bedtime for mood stabilization. -Patient was counseled on the need for medication compliance and appropriate follow-up at mental health and also primary care for medical issues. Patient verbalized understanding and agreed. -Social work to arrange for and conduct family meeting to ensure safety upon discharge and answer any questions/concerns. Social work also to arrange for patients follow up appointments with [facility] for psychiatric care along with follow up with primary care provider. -Patient counseled on abstaining from recreational drugs and marijuana and alcohol. Was informed/educated on the adverse effects on their physical and mental health. Patient verbally agreed and understood. -Patient was instructed to return to the hospital or seek immediate medical care if their psychiatric or medical symptoms do worsen or reoccur. -Psychoeducation and supportive therapy provided to patient. Risks and benefits of pharmacological treatment versus the risks and benefits of nontreatment weight and discussed. Informed consent discussion held. Common side effects of psychotropics discussed such as, but not limited to headache, GI disturbance, sexual dysfunction, movement disorders, sedation, and orthostatic hypotension. Life threatening and blackbox warnings of prescribed medications also discussed. Potential risks of operating a vehicle or heavy machinery discussed with patient at length. Advised on importance of compliance and a reliable and responsible manner. Patient advised to review FDA consumer labeling of all medications prior to taking. Patient verbalized understanding of potential risks, and agrees with current treatment plan. Patient advised to medically contact physician/emergency personnel if any acute changes in condition occur. Vital Signs Temp 98 F 12/17/20 06:34 Pulse 62 12/17/20 06:34 Resp 16 12/17/20 06:34 BP 132/78 12/17/20 06:34 Pulse Ox 97 12/15/20 06:41 Laboratory Results WBC 6.4 k/uL (3.8-10.6) 12/14/20 07:31 RBC 4.73 m/uL (4.30-5.90) 12/14/20 07:31 Hgb 14.8 gm/dL (13.0-17.5) 12/14/20 07:31 Hct 46.5 % (39.0-53.0) 12/14/20 07: MCV 98.3 fL (80.0-100.0) 12/14/20 07: MCH 31.3 pg (25.0-35.0) 12/14/20 07: MCHC 31.9 g/dL (31.0-37.0) 12/14/20 07: RDW 13.9 % (11.5-15.5) 12/14/20 07: Plt Count 294 k/uL (150-450) 12/14/20 07: MPV 6.4 12/14/20 07: Neutrophils % 37 % 12/14/20 07: Lymphocytes % 44 % 12/14/20 07: Monocytes % 8 % 12/14/20 07: Eosinophils % 7 % 12/14/20 07: Basophils % 1 % 12/14/20 07: Neutrophils # 2.4 k/uL (1.3-7.7) 12/14/20 07: Lymphocytes # 2.8 k/uL (1.0-4.8) 12/14/20 07: Monocytes # 0.5 k/uL (0-1.0) 12/14/20 07: Eosinophils # 0.5 k/uL (0-0.7) 12/14/20 07: Basophils # 0.1 k/uL (0-0.2) 12/14/20 07:31 Sodium 137 mmol/L (137-145) 12/14/20 07: Potassium 4.6 mmol/L (3.5-5.1) 12/14/20 07: Chloride 106 mmol/L (98-107) 12/14/20 07: Carbon Dioxide 28 mmol/L (22-30) 12/14/20 07:31 Anion Gap 3 mmol/L 12/14/20 07:31 BUN 16 mg/dL (9-20) 12/14/20 07: Creatinine 0.88 mg/dL (0.66-1.25) 12/14/20 07:31 Est GFR (CKD-EPI)AfAm >90 (>60 ml/min/1.73 sqM) 12/14/20 07:31 Est GFR (CKD-EPI)NonAf >90 (>60 ml/min/1.73 sqM) 12/14/20 07:31 Glucose 92 mg/dL (74-99) 12/14/20 07:[address] Glu mg/dL 100 12/14/20 07:31 Hemoglobin A1c 5.1 % (4.0-6.0) 12/14/20 07:31 Calcium 9.7 mg/dL (8.4-10.2) 12/14/20 07:31 Total Bilirubin 0.5 mg/dL (0.2-1.3) 12/14/20 07:31 AST 28 U/L (17-59) 12/14/20 07:31 ALT 11 U/L (4-49) 12/14/20 07:31 Alkaline Phosphatase 54 U/L (38-126) 12/14/20 07:31 Total Protein 6.9 g/dL (6.3-8.2) 12/14/20 07:31 Albumin 4.3 g/dL (3.5-5.0) 12/14/20 07:31 Triglycerides 40 mg/dL (<150) 12/14/20 07:31 Cholesterol 215 mg/dL (<200) H 12/14/20 07:31 LDL Cholesterol, Calc 121 mg/dL (0-99) H 12/14/20 07:31 HDL Cholesterol 86 mg/dL (40-60) H 12/14/20 07:31 TSH 0.968 mIU/L (0.465-4.680) 12/14/20 07:31 Urine Opiates Screen Negative ng/mL (Negative) 12/14/20 18:44 Ur Oxycodone Screen Not Detected (NotDetected) 12/13/20 20:40 Urine Methadone Screen Negative ng/mL (Negative) 12/14/20 18:44 Ur Propoxyphene Screen Negative ng/mL (Negative) 12/14/20 18:44 Ur Barbiturates Screen Not Detected (NotDetected) 12/13/20 20:40 Urine Barbiturates Negative ng/mL (Negative) 12/14/20 18:44 Valproic Acid 36.3 ug/mL 12/16/20 11:39 U Tricyclic Antidepress Not Detected (NotDetected) 12/13/20 20:40 Ur Phencyclidine Scrn Negative ng/mL (Negative) 12/14/20 18:44 Ur Amphetamine Screen Negative ng/mL (Negative) 12/14/20 18:44 Ur Amphetamines Screen Not Detected (NotDetected) 12/13/20 20:40 U Methamphetamines Scrn Not Detected (NotDetected) 12/13/20 20:40 U Benzodiazepines Scrn Negative ng/mL (Negative) 12/14/20 18:44 [place] <0.2 mmol/L 12/13/20 20:49 Urine Cocaine Screen Negative ng/mL (Negative) 12/14/20 18:44 U Cannabinoids Screen Negative ng/mL (Negative) 12/14/20 18:44 U Marijuana (THC) Screen Not Detected (NotDetected) 12/13/20 20:40 Urine Alcohol Negative mg/dL (Negative) 12/14/20 18:44 Coronavirus (PCR) Not Detected (Not Detectd) 12/13/20 20:01 Allergies Allergy/AdvReac Type Severity Reaction Status Date / Time shellfish derived Shellfish Allergy Rash/Hives Verified 12/13/20 21:59 Patient Condition at Discharge: Stable Plan - Discharge Summary Discharge Rx Participant: No New Discharge Prescriptions: New Divalproex ER [Depakote ER] 750 mg PO HS 30 Days #30 tab.er.24h Discontinued Nicotine 21Mg/24Hr Patch [Habitrol] 1 patch TRANSDERM DAILY 30 Days patch [place] Carbonate 600 mg PO BID 30 Days cap QUEtiapine [SEROquel] 300 mg PO HS 30 Days tab Discharge Medication List Divalproex ER [Depakote ER] 750 mg PO HS 30 Days #30 tab.er.24h 12/17/20 [Rx] Follow up Appointment(s)/Referral(s): [facility] [Outside] - 12/23/20 12:30 pm (12-23-20 @ 12:30 with Jannet Armstrong by phone 12-24-20 @ 3:30 with SAGE Kerr at [facility] office for psych evaluation) [facility] [NON-STAFF] - 1 Week Patient Instructions/Handouts: How to Stop Smoking (DC), Depression (DC) Activity/Diet/Wound Care/Special Instructions: Activity and diet as tolerated. Avoid the use of street drugs and alcohol. Take all medications as prescribed. When you are in need of refills on your medications please contact your medical provider and/or outpatient psychiatrist to have this done. Please go to scheduled outpatient appointment for aftercare treatment. If symptoms return or become worse, call the crisis line at and/or go to the nearest emergency room for evaluation. Discharge Disposition: OTHER INSTITUTION NOT DEFINED
[2020-12-17 13:20] VITALS: TEMP 97.8
== END 2020-12-17 15:09 | disposition home or self-care (01) | DRG 885 ==
LOC: EC 19:39 → 3MHU 20:29
PROVIDERS: ADMIT Psychiatry & Neurology Psychiatry; ATTEND Psychiatry & Neurology Psychiatry
DX: F31.81 Bipolar II disorder (principal); R45.851 Suicidal ideations; F17.201 Nicotine dependence, unspecified, in remission; Z56.0 Unemployment, unspecified; Z59.0 Homelessness; Z79.899 Other long term (current) drug therapy; Z63.0 Problems in relationship with spouse or partner; Z20.822 Contact with and (suspected) exposure to COVID-19; Z91.013 Allergy to seafood
CPT/HCPCS: 80053; 80061; 80164; 80178; 80306; 82075; 83036; 84443; 85025; 87635; 99285